=== PATIENT | female | born 1975 | race Two or more races ===

== ENCOUNTER → 2020-04-27 | Outpatient (CLI) | payer BC | END | disposition home or self-care (01) | LOC: LAB 08:46 | PROVIDERS: ATTEND Obstetrics & Gynecology | DX: Z01.812 Encounter for preprocedural laboratory examination (principal); Z20.828 Contact with and (suspected) exposure to other viral communicable diseases | CPT/HCPCS: 87426 ==

== ENCOUNTER 2020-04-30 05:25 | Day surgery (SDC) | payer BC ==
[~2020-04-30] VITALS: Ht 157.5 cm; Wt 70.3 kg
[2020-04-30] MEDS ORDERED: LACTATED RINGERS 1,000 ML IV SCH (06:15)
[2020-04-30] MEDS ORDERED: SKIN ADHESIVE 0.7 GM EA TOP ONE (06:29)
[2020-04-30] MEDS ORDERED: VASOPRESSIN 20 UNIT/ML 1ML ONE (06:29)
[2020-04-30] MEDS ORDERED: BUPIVACAINE HCL/PF 0.5% (5MG/ML) 10ML ONE (06:29)
[2020-04-30 06:35] LABS: CLARITY URINE CLEAR (CLEAR); COLOR URINE YELLOW (YELLOW); KETONES URINE NEGATIVE (NEGATIVE); LEUKOCYTE ESTERASE URINE NEGATIVE (NEGATIVE); NITRITE URINE NEGATIVE (NEGATIVE); OCCULT BLOOD URINE TRACE (NEGATIVE); PH URINE 5.5 (4.5-8.0); PROTEIN URINE NEGATIVE (NEGATIVE); SPECIFIC GRAVITY URINE 1.019 (1.005-1.030); UROBILINOGEN URINE 0.2 E.U./dL (0.2-1.0)
[2020-04-30] MEDS ORDERED: ROPIVACAINE HCL 10MG/ML 20 ML VIAL EPI ONE (06:39)
[2020-04-30 06:48] LABS: BASOPHILS % 0.5 % (0.0-2.0); EOSINOPHILS % 2.4 % (0.0-5.0); HEMATOCRIT. 32.6 % (36.0-48.0); HEMOGLOBIN. 10.9 g/dL (12.0-16.0); MEAN CORPUSCULAR HEMOGLOBIN 28.3 pg (28.0-32.0); MEAN CORPUSCULAR VOLUME 84.8 fL (81.0-99.0); MEAN PLATELET VOLUME 9.2 fl (7.4-10.4); MONOCYTES % 5.9 % (2.0-8.0); NEUTROPHILS % 60.2 % (40.0-76.0); PLATELET 310 x1000/uL (130-400); RED BLOOD CELL COUNT 3.85 mill/uL (4.2-5.4); RED CELL DISTRIBUTION WIDTH 14.4 % (11.6-14.6)
[2020-04-30 06:53] LABS: UCG SCREEN NEGATIVE
[2020-04-30 06:57] LABS: CHLORIDE 110 mEq/L (98-107)
[2020-04-30 06:59] LABS: PARTIAL THROMBOPLASTIN TIME 27.6 sec (23.4-31.0); PROTHROMBIN TIME 10.8 sec (9.6-11.0)
[2020-04-30] MEDS ORDERED: FENTANYL CITRATE/PF 50MCG/ML 2ML VIAL ONE ×2 (07:13→12:14)
[2020-04-30] MEDS ORDERED: MIDAZOLAM HCL 2 MG/2 ML VIAL ONE (07:14)
[2020-04-30] MEDS ORDERED: ROCURONIUM BROMIDE 10MG/ML VIAL 5ML IV ONE (07:28)
[2020-04-30] MEDS ORDERED: SUCCINYLCHOLINE CHLORIDE 200MG/10ML IV ONE (07:28)
[2020-04-30] MEDS ORDERED: LIDOCAINE HCL 1% 20ML VIAL (Pyxis) INJ ONE (07:29)
[2020-04-30] MEDS ORDERED: PROPOFOL 200MG/20ML VIAL IV ONE (07:29)
[2020-04-30] MEDS ORDERED: EPHEDRINE SULFATE 50MG/ML VIAL ONE (07:32)
[2020-04-30] MEDS ORDERED: SODIUM CHLORIDE 0.9% 10ML VIAL ONE ×2 (07:32→09:15)
[2020-04-30] MEDS ORDERED: CEFAZOLIN SODIUM 1000MG/VIAL ONE (09:15)
[2020-04-30] MEDS ORDERED: DEXAMETHASONE 4MG/ML 1ML VIAL ONE (09:24)
[2020-04-30] MEDS ORDERED: ONDANSETRON HCL 4MG/2ML INJ ONE (09:25)
[2020-04-30] MEDS ORDERED: KETOROLAC 30MG/ML VIAL ONE (12:11)
[2020-04-30] MEDS: HYDROMORPHONE HCL/PF 2MG/ML CPJ IV PRN ×3 (13:42→14:20)
[2020-04-30 14:20] VITALS: BP 147/97
== END 2020-04-30 16:10 | disposition home or self-care (01) ==
LOC: OR 05:25
PROVIDERS: ATTEND Obstetrics & Gynecology
DX: D25.9 Leiomyoma of uterus, unspecified (principal); N92.0 Excessive and frequent menstruation with regular cycle; N72 Inflammatory disease of cervix uteri; I10 Essential (primary) hypertension; Z79.899 Other long term (current) drug therapy; Z98.890 Other specified postprocedural states
CPT/HCPCS: 36415; 58554; 80048; 81003; 81025; 85025; 85610; 85730; 86850; 86900; 86901; 88305; C1725; J0330; J0690; J1100; J1170; J1885; J2250; J2405; J2704; J2795; J3010; J3490; S2900